=== PATIENT | female | born 1995 | race Two or more races ===

== ENCOUNTER 2017-03-17 10:29 | Emergency (ER) | payer OTHER ==
[~2017-03-17] VITALS: Ht 167.6 cm; Wt 114.8 kg
[2017-03-17 14:51] LABS: BASOPHIL % 0.7 % (0-2); PLATELET COUNT 375 x10^3mcL (130-400)
[2017-03-17 14:52] LABS: RED CELL DISTRIBUTION WIDTH 15.4 % (11.5-14.5)
[2017-03-17 15:17] LABS: CALCIUM 9.3 mg/dL (8.5-10.1); CARBON DIOXIDE 26.1 mmol/L (21-32); CHLORIDE SERUM 104 mmol/L (98-107); CREATININE SERUM 0.7 mg/dL (0.6-1.0); GFR1 > 60 mL/min; GLUCOSE SERUM 90 mg/dL (74-106); POTASSIUM SERUM 4.1 mmol/L (3.5-5.1); SODIUM SERUM 140 mmol/L (136-145)
[2017-03-17 15:19] LABS: ALBUMIN 3.8 g/dL (3.4-5.0); ALKALINE PHOSPHATASE 56 U/L (46-116); ALT/SGPT 21 U/L (14-59); AMYLASE 43 U/L (25-115); AST/SGOT 13 U/L (15-37); BILIRUBIN TOTAL 0.3 mg/dL (0.20-1.00); LIPASE 110 IU/L (73-393); TOTAL PROTEIN, SERUM 7.9 g/dL (6.4-8.2)
[2017-03-17 16:59] VITALS: BP 132/73
== END 2017-03-17 16:59 | disposition home or self-care (01) ==
LOC: ED 10:29
PROVIDERS: Specialist
DX: N83.202 Unspecified ovarian cyst, left side (principal); N83.201 Unspecified ovarian cyst, right side; G89.29 Other chronic pain; M54.5 Low back pain; M79.7 Fibromyalgia
CPT/HCPCS: 36415

== ENCOUNTER 2017-05-07 22:35 | Emergency (ER) | payer OTHER ==
[~2017-05-07] VITALS: Ht 167.6 cm; Wt 115.2 kg
[2017-05-07 22:50] VITALS: Ht 167.6 cm; Wt 115.2 kg
[2017-05-08 00:57] VITALS: BP 140/82
== END 2017-05-08 00:57 | disposition home or self-care (01) ==
LOC: ED 22:35
DX: S09.90XA Unspecified injury of head, initial encounter (principal); J06.9 Acute upper respiratory infection, unspecified; M79.7 Fibromyalgia; V49.9XXA Car occupant (driver) (passenger) injured in unspecified traffic accident, initial encounter; Y93.89 Activity, other specified; Y92.89 Other specified places as the place of occurrence of the external cause; Y99.8 Other external cause status

== ENCOUNTER 2017-09-29 21:22 | Emergency (ER) | payer OTHER ==
[2017-09-29 23:32] VITALS: BP 136/60
== END 2017-09-29 23:32 | disposition home or self-care (01) ==
LOC: ED 21:22
DX: K60.0 Acute anal fissure (principal); K59.00 Constipation, unspecified; M79.7 Fibromyalgia

== ENCOUNTER 2018-03-25 20:34 | Emergency (ER) | payer OTHER ==
[~2018-03-25] VITALS: Ht 167.6 cm; Wt 105.2 kg
[2018-03-25 20:54] VITALS: Ht 167.6 cm; Wt 105.2 kg
[2018-03-25 22:33] VITALS: BP 123/87
== END 2018-03-25 22:33 | disposition home or self-care (01) ==
LOC: ED 20:34
DX: J06.9 Acute upper respiratory infection, unspecified (principal); M32.9 Systemic lupus erythematosus, unspecified; M79.7 Fibromyalgia

== ENCOUNTER 2018-04-05 20:42 | Emergency (ER) | payer OTHER ==
[~2018-04-05] VITALS: Ht 167.6 cm; Wt 105.2 kg
[2018-04-05 21:06] VITALS: Ht 167.6 cm; Wt 105.2 kg
[2018-04-05 22:48] VITALS: BP 128/90
== END 2018-04-05 22:48 | disposition home or self-care (01) ==
LOC: ED 20:42
DX: H60.92 Unspecified otitis externa, left ear (principal); J06.9 Acute upper respiratory infection, unspecified; M32.9 Systemic lupus erythematosus, unspecified; M79.7 Fibromyalgia

== ENCOUNTER 2018-06-09 19:49 | Emergency (ER) | payer OTHER ==
[~2018-06-09] VITALS: Ht 170.2 cm; Wt 106.1 kg
[2018-06-09 19:53] VITALS: Ht 170.2 cm; Wt 106.1 kg
[2018-06-09 20:37] LABS: BASOPHIL % 0.2 % (0-2); PLATELET COUNT 353 x10^3mcL (130-400); RED CELL DISTRIBUTION WIDTH 15.8 % (11.5-14.5)
[2018-06-09 20:43] LABS: CALCIUM 8.9 mg/dL (8.5-10.1); CARBON DIOXIDE 30.6 mmol/L (21-32); CHLORIDE SERUM 105 mmol/L (98-107); CREATININE SERUM 0.8 mg/dL (0.6-1.0); GFR1 > 60 mL/min; GLUCOSE SERUM 102 mg/dL (74-106); POTASSIUM SERUM 4.1 mmol/L (3.5-5.1); SODIUM SERUM 140 mmol/L (136-145)
[2018-06-09 20:48] LABS: ALBUMIN 3.5 g/dL (3.4-5.0); ALKALINE PHOSPHATASE 53 U/L (46-116); ALT/SGPT 18 U/L (14-59); AST/SGOT 12 U/L (15-37); BILIRUBIN TOTAL 0.16 mg/dL (0.20-1.00); TOTAL PROTEIN, SERUM 7.3 g/dL (6.4-8.2)
[2018-06-10 00:30] VITALS: BP 122/88
== END 2018-06-10 00:30 | disposition home or self-care (01) ==
LOC: ED 19:49
PROVIDERS: Emergency Medicine
DX: B34.9 Viral infection, unspecified (principal); M32.9 Systemic lupus erythematosus, unspecified; M79.7 Fibromyalgia
CPT/HCPCS: 85378; 87804; J1885; J2270; J7030

== ENCOUNTER 2018-10-07 11:27 | Emergency (ER) | payer OTHER ==
[~2018-10-07] VITALS: Ht 167.6 cm; Wt 105.7 kg
[2018-10-07 11:35] VITALS: Ht 167.6 cm; Wt 105.7 kg
[2018-10-07 13:19] VITALS: BP 122/74
== END 2018-10-07 13:19 | disposition home or self-care (01) ==
LOC: ED 11:27
DX: H81.10 Benign paroxysmal vertigo, unspecified ear (principal)
CPT/HCPCS: 82962; J8597; Q0162

== ENCOUNTER 2019-05-16 12:17 | Emergency (ER) | payer OTHER ==
[~2019-05-16] VITALS: Ht 170.2 cm; Wt 108.9 kg
[2019-05-16 12:21] VITALS: Ht 170.2 cm; Wt 108.9 kg
[2019-05-16 14:26] LABS: BASOPHIL % 0.3 % (0-2); PLATELET COUNT 379 x10^3mcL (130-400)
[2019-05-16 14:38] LABS: RED CELL DISTRIBUTION WIDTH 15.7 % (11.5-14.5)
[2019-05-16 15:54] LABS: CALCIUM 8.8 mg/dL (8.5-10.1); CARBON DIOXIDE 25.4 mmol/L (21-32); CHLORIDE SERUM 107 mmol/L (98-107); CREATININE SERUM 0.6 mg/dL (0.6-1.0); GFR1 > 60 mL/min; GLUCOSE SERUM 81 mg/dL (74-106); POTASSIUM SERUM 4.2 mmol/L (3.5-5.1); SODIUM SERUM 140 mmol/L (136-145)
[2019-05-16 15:59] LABS: ALBUMIN 3.4 g/dL (3.4-5.0); ALKALINE PHOSPHATASE 52 U/L (46-116); ALT/SGPT 23 U/L (14-59); AST/SGOT 18 U/L (15-37); BILIRUBIN TOTAL 0.19 mg/dL (0.20-1.00); TOTAL PROTEIN, SERUM 7.1 g/dL (6.4-8.2)
[2019-05-16 16:55] VITALS: BP 125/87
== END 2019-05-16 16:55 | disposition home or self-care (01) ==
LOC: ED 12:17
PROVIDERS: Emergency Medicine
DX: K52.9 Noninfective gastroenteritis and colitis, unspecified (principal); M32.9 Systemic lupus erythematosus, unspecified; M79.7 Fibromyalgia
CPT/HCPCS: J2405; J7030

== ENCOUNTER 2019-11-01 19:18 | Emergency (ER) | payer OTHER, SELFPAY ==
[~2019-11-01] VITALS: Ht 167.6 cm; Wt 104.3 kg
[2019-11-01 19:19] VITALS: Ht 167.6 cm; Wt 104.3 kg
[2019-11-01 20:49] VITALS: BP 115/70
== END 2019-11-01 20:49 | disposition home or self-care (01) ==
LOC: ED 19:18
DX: R50.9 Fever, unspecified (principal); M79.10 Myalgia, unspecified site; R63.0 Anorexia; M79.7 Fibromyalgia; Z20.828 Contact with and (suspected) exposure to other viral communicable diseases
CPT/HCPCS: U0003-CS